=== PATIENT | female | born 1940 | race Caucasian/White ===

== ENCOUNTER → 2017-04-29 | Outpatient (CLI) | payer OTHER ==
[~2017-04-29] MED LIST: ACETASOL; ASCO1ER PO; ASPI81EC PO; AVISTA; Aspir 8181 MG PO; BETA CAROTENE PO; CALCIUM CITRAT1 EAC1 PO; CHOL10002 PO; CONESTTC PV; CONESTTC VAG; Cinnamon500 MG; Cranberry300 MG PO; ERGO400 PO; FISH1000 PO; FLAX PO; FLAXSEED1000 MG PO; HYDMOR4 PO; LEVSOD125 PO; LEVSOD50 PO; LUTEIN; MEDR2.5 PO; NAPR500 PO; NITR.4SL SL; NITR.6SL SL; RABE20; RABE20 PO; RXHYDMOR2 PO; SIMILASAN; Super B-50 Com1 EACH PO; TERI750 SQ; TURMERIC500 M2 PO; VIT1CAPS12; [UNRECOGNIZED DRUG - CODE]; [UNRECOGNIZED DRUG - OTHER]; [UNRECOGNIZED DRUG - REMARK]
== END | disposition home or self-care (01) ==
LOC: LAB 14:33
DX: N39.0 Urinary tract infection, site not specified (principal)
CPT/HCPCS: 87086

== ENCOUNTER → 2017-05-04 | Outpatient (CLI) | payer OTHER | LOC: LAB 13:45 | DX: N39.0 Urinary tract infection, site not specified (principal) | CPT/HCPCS: 87086 ==

== ENCOUNTER 2017-06-08 09:09 | Emergency (ER) | payer OTHER ==
[~2017-06-08] VITALS: Ht 162.6 cm; Wt 53.0 kg
[~2017-06-08 09:09] MED LIST changes: -FLAXSEED1000 MG PO; -TURMERIC500 M2 PO
[2017-06-08 09:36] LABS: BASOPHILS ABSOLUTE AUTO 0.03 K/mm3 (0.00-0.23); BASOPHILS PERCENT AUTO 1 % (0-2); EOSINOPHILS ABSOLUTE AUTO 0.07 K/mm3 (0.00-0.68); EOSINOPHILS PERCENT AUTO 1 % (0-6); Hemoglobin 12.7 g/dL (11.5-16.0); IMMATURE GRAN ABSOLUTE AUTO 0.02 K/mm3 (0.00-0.10); IMMATURE GRAN PERCENT AUTO 0 % (0-1); LYMPHOCYTES ABSOLUTE AUTO 1.46 K/mm3 (0.84-5.20); LYMPHOCYTES PERCENT AUTO 23 % (21-46); MONOCYTES ABSOLUTE AUTO 0.77 K/mm3 (0.16-1.47); MONOCYTES PERCENT AUTO 12 % (4-13); Mean Corpuscular HGB 29.8 pg (26.0-34.0); Mean Corpuscular HGB Conc 32.6 g/dL (31.5-36.5); Mean Corpuscular Volume 92 fL (80-100); Mean Platelet Volume 10.3 fL (9.1-12.4); NEUTROPHILS ABSOLUTE AUTO 4.12 K/mm3 (1.96-9.15); NEUTROPHILS PERCENT AUTO 64 % (41-73); Platelet Count 225 K/mm3 (150-400); RDW Coefficient Variation 13.6 % (11.7-14.2); RDW Standard Deviation 46.1 fL (35.1-46.3); Red Blood Cell Count 4.26 M/mm3 (3.80-5.20); White Blood Cell Count 6.47 K/mm3 (4.00-11.30)
[2017-06-08] MEDS ORDERED: TURMERIC500 M2 PO (09:59)
[2017-06-08] MEDS ORDERED: FLAXSEED1000 MG PO (10:00)
[2017-06-08 10:02] LABS: Alanine Aminotransfer (ALT/SGP 33 U/L (12-78); Albumin, Blood 3.5 g/dL (3.4-5.0); Alk Phos 45 U/L (50-136); Anion Gap 8 mmol/L (6-16); Aspartate Aminotrans (AST/SGOT 31 U/L (12-37); Bilirubin, Total 0.3 mg/dL (0.1-1.0); Blood Urea Nitrogen 23 mg/dL (8-24); Bun/Creatinine Ratio 32.3 (12.0-20.0); CO2, Blood 26 mmol/L (21-32); Calcium, Blood 8.6 mg/dL (8.5-10.1); Chloride, Blood 107 mmol/L (98-108); Creatinine, Blood 0.71 mg/dL (0.40-1.00); Globulin, Blood 3.6 g/dL (2.2-4.0); Glomerular Filtration Rate >60 (60-); Glucose, Blood 80 mg/dL (70-99); Potassium, Blood 3.9 mmol/L (3.5-5.5); Sodium, Blood 141 mmol/L (136-145); Total Protein, Blood 7.1 g/dL (6.4-8.2); Troponin I <0.015 ng/mL (0.000-0.040)
[2017-06-08 11:34] LABS: Source, Urine Clean Catch
[2017-06-08 11:39] LABS: Bilirubin, Urine Neg (Neg); Blood, Urine Neg (Neg); Glucose Qualitative, Urine Neg (Neg); Ketones, Urine Neg (Neg); Leukocyte Esterase, Urine 1+ (Neg); Nitrite, Urine Neg (Neg); Protein, Urine Neg (Neg); Urobilinogen, Urine NORM (Normal)
[2017-06-08 11:59] LABS: Appearance, Urine Clear (Clear); Color, Urine Yellow (P-Yellow); Red Blood Cells, Urine 0-2 /hpf (0-2); Squamous Epithelial Cells Few /hpf (Few)
[2017-06-08 12:00] LABS: Bacteria Rare /hpf
== END 2017-06-08 12:41 | disposition home or self-care (01) ==
LOC: ER 09:09
PROVIDERS: Emergency Medicine
DX: R07.9 Chest pain, unspecified (principal); E11.9 Type 2 diabetes mellitus without complications; E03.9 Hypothyroidism, unspecified; K21.9 Gastro-esophageal reflux disease without esophagitis; Z88.0 Allergy status to penicillin; Z88.8 Allergy status to other drugs, medicaments and biological substances; Z88.1 Allergy status to other antibiotic agents; Z79.899 Other long term (current) drug therapy; Z79.82 Long term (current) use of aspirin; Z87.891 Personal history of nicotine dependence
CPT/HCPCS: 36415; 71046; 80053; 81001; 83880; 84484; 85025; 87086; 93005; 93010; 99284; J2405

== ENCOUNTER → 2018-04-07 | Outpatient (CLI) | payer OTHER ==
[~2018-04-07] MED LIST changes: +FLAXSEED1000 MG PO; +TURMERIC500 M2 PO
== END | disposition home or self-care (01) ==
LOC: LAB 11:34 → LAB SHORT 11:34
DX: R30.0 Dysuria (principal)
CPT/HCPCS: 87086

== ENCOUNTER → 2018-09-16 | Outpatient (CLI) | payer OTHER ==
[2018-09-16 14:02] LABS: Thyroid Stimulating Hormone 2.92 uIU/mL (0.360-4.800)
== END | disposition home or self-care (01) ==
LOC: LAB 13:21 → LAB SHORT 13:21
PROVIDERS: Hospitalist
DX: E03.9 Hypothyroidism, unspecified (principal)
CPT/HCPCS: 84439; 84443

== ENCOUNTER 2019-06-20 07:47 | Day surgery (SDC) | payer OTHER ==
[~2019-06-20] VITALS: Ht 162.6 cm; Wt 51.9 kg
[~2019-06-20 07:47] MED LIST changes: +ACETASOL HC BOTHEARS; +CONEST.625 VAG; +DICL25ER TOP; +PROLIA60 MG/1 ML SC
--- NOTE | 2019-06-20 09:36 | NUR ---
06/20/19 0936 Kristin Beckham CLINDAMYCIN 900 MG STARTED AT 0906.
== END 2019-06-20 11:08 | disposition home or self-care (01) ==
LOC: ORSCSDS 07:47
PROVIDERS: Orthopaedic Surgery
PROC: 0SBD4ZZ Excision of Left Knee Joint, Percutaneous Endoscopic Approach (ICD-10-PCS; principal; 2019-06-20 09:00)
DX: S83.242A Other tear of medial meniscus, current injury, left knee, initial encounter (principal); S83.282A Other tear of lateral meniscus, current injury, left knee, initial encounter; I10 Essential (primary) hypertension; E11.9 Type 2 diabetes mellitus without complications; E03.9 Hypothyroidism, unspecified; Z79.899 Other long term (current) drug therapy; Z87.891 Personal history of nicotine dependence; J45.909 Unspecified asthma, uncomplicated
CPT/HCPCS: 82947; J0171; J1100; J1885; J2250; J2405; J2704; J3010; J3370; J7120

== ENCOUNTER → 2019-06-30 | Outpatient (CLI) | payer OTHER ==
[2019-06-30 20:12] LABS: Free Thyroxine 1.2 ng/dL (0.70-1.60)
[2019-06-30 20:15] LABS: Thyroid Stimulating Hormone 2.31 uIU/mL (0.360-4.800)
== END ==
LOC: LAB 17:48 → LAB SHORT 17:48
PROVIDERS: Hospitalist
DX: E03.9 Hypothyroidism, unspecified (principal)
CPT/HCPCS: 84439; 84443

== ENCOUNTER → 2020-11-08 | Outpatient (CLI) | payer OTHER ==
[~2020-11-08] MED LIST changes: +FISH OIL PO; +GLUCHON PO; +VITAMIN B50 PO
[2020-11-08 15:29] LABS: BASOPHILS ABSOLUTE AUTO 0.03 K/mm3 (0.00-0.23); BASOPHILS PERCENT AUTO 0 % (0-2); EOSINOPHILS ABSOLUTE AUTO 0.07 K/mm3 (0.00-0.68); EOSINOPHILS PERCENT AUTO 1 % (0-6); Hematocrit 38.9 % (33.0-51.0); Hemoglobin 12.7 g/dL (11.5-16.0); IMMATURE GRAN ABSOLUTE AUTO 0.01 K/mm3 (0.00-0.10); IMMATURE GRAN PERCENT AUTO 0 % (0-1); LYMPHOCYTES PERCENT AUTO 15 % (21-46); MONOCYTES ABSOLUTE AUTO 0.62 K/mm3 (0.16-1.47); MONOCYTES PERCENT AUTO 9 % (4-13); Mean Corpuscular HGB 29.5 pg (26.0-34.0); Mean Corpuscular HGB Conc 32.6 g/dL (31.5-36.5); Mean Corpuscular Volume 91 fL (80-100); Mean Platelet Volume 10.7 fL (9.1-12.4); NEUTROPHILS ABSOLUTE AUTO 5.33 K/mm3 (1.96-9.15); NEUTROPHILS PERCENT AUTO 74 % (41-73); Platelet Count 265 K/mm3 (150-400); RDW Coefficient Variation 13.2 % (11.7-14.2); RDW Standard Deviation 43.8 fL (35.1-46.3); White Blood Cell Count 7.16 K/mm3 (4.00-11.30)
== END | disposition home or self-care (01) ==
LOC: LAB SHORT 13:50
PROVIDERS: Hospitalist
DX: K21.9 Gastro-esophageal reflux disease without esophagitis (principal); K92.1 Melena
CPT/HCPCS: 85025

== ENCOUNTER 2021-03-20 10:55 | Day surgery (SDC) | payer OTHER ==
[~2021-03-20] VITALS: Ht 162.6 cm; Wt 49.4 kg
--- NOTE | 2021-03-20 12:35 | NUR ---
Ambulatory in Day Surgery History, Chart, Medications and Allergies reviewed before start of procedure.Lungs clear T/O to Auscultation. Patient confirms NPO status and agrees with scheduled surgery. ALL BEONINGS PLACED UNDER THE BED.
--- NOTE | 2021-03-20 17:36 | NUR ---
PT ARRIVED TO UNIT FROM PACU. POLAR MARLENA IN PLACE DRESSING CDI. PT REPORTS MINIMAL FEELING TO LOWER EXTREMETIES, AND HAS MINIMAL MOVEMENT OF TOES. DENIES PAIN OR NAUSEA. REPORTS FEELING VERY TIRED AFTER SURGERY AND REQUESTED THIS RN HOLD OFF ASKING ADMIT QUESTIONS AT THIS TIME. AT BEDSIDE. CALL LIGHT IN REACH. PT EDUCATED ON USE.
--- NOTE | 2021-03-21 04:47 | NUR ---
SHIFT SUMMARY PT A/OX4, VSS. SURGICAL DRESSING TO L KNEE C/D/I. S/L PER ORDER. PAIN CONTROLLED WITH SCHEDULED/PRN MEDICATIONS. PT UP TO THE BATHROOM AND VOIDING WITH NO ISSUES WHILE USING A WALKER.
[2021-03-21 05:31] LABS: BASOPHILS ABSOLUTE AUTO 0.02 K/mm3 (0.00-0.23); BASOPHILS PERCENT AUTO 0 % (0-2); EOSINOPHILS PERCENT AUTO 0 % (0-6); Hematocrit 32.7 % (33.0-51.0); Hemoglobin 10.7 g/dL (11.5-16.0); IMMATURE GRAN ABSOLUTE AUTO 0.07 K/mm3 (0.00-0.10); IMMATURE GRAN PERCENT AUTO 1 % (0-1); LYMPHOCYTES ABSOLUTE AUTO 0.77 K/mm3 (0.84-5.20); LYMPHOCYTES PERCENT AUTO 5 % (21-46); MONOCYTES PERCENT AUTO 10 % (4-13); Mean Corpuscular HGB 29.4 pg (26.0-34.0); Mean Corpuscular HGB Conc 32.7 g/dL (31.5-36.5); Mean Corpuscular Volume 90 fL (80-100); Mean Platelet Volume 10.8 fL (9.1-12.4); NEUTROPHILS ABSOLUTE AUTO 12.44 K/mm3 (1.96-9.15); NEUTROPHILS PERCENT AUTO 85 % (41-73); Platelet Count 214 K/mm3 (150-400); RDW Coefficient Variation 13.2 % (11.7-14.2); RDW Standard Deviation 43.5 fL (35.1-46.3); Red Blood Cell Count 3.64 M/mm3 (3.80-5.20)
[2021-03-21 05:57] LABS: Anion Gap 8 mmol/L (6-16); Blood Urea Nitrogen 22 mg/dL (8-24); Bun/Creatinine Ratio 27.5 (12.0-20.0); CO2, Blood 27 mmol/L (21-32); Calcium, Blood 8.4 mg/dL (8.5-10.1); Chloride, Blood 106 mmol/L (98-108); Glomerular Filtration Rate >60 (60-); Glucose, Blood 128 mg/dL (70-99); Magnesium, Blood 1.9 mg/dL (1.6-2.4); Potassium, Blood 4.2 mmol/L (3.5-5.5); Sodium, Blood 141 mmol/L (136-145)
[2021-03-21] MEDS ORDERED: ASPI81CH PO (10:37)
[2021-03-21] MEDS ORDERED: ROXICODONE5 MG PO (10:38)
[2021-03-21] MEDS ORDERED: PROM25 PO (10:39)
[2021-03-21] MEDS ORDERED: BACTRIM DS TAB1 EAC6 (10:40)
[2021-03-21] MEDS ORDERED: SULTRIDS PO (10:41)
--- NOTE | 2021-03-21 11:23 | NUR ---
1102 discharged to home with . pt reports pain is well controlled . pt and spouse verbalize understanding of discharge instructions.t masoud po food without nausea. voiding clear yellow urine.
--- NOTE | 2021-03-21 11:52 | NUR ---
03/21/21 1152 Lydia Griggs VERIFICATIONS: EDIT CHART.
== END 2021-03-21 11:05 | disposition home or self-care (01) ==
LOC: ORSCMMR 10:55 → ORD 14:00 → SURS 16:56 → ORSCMMR 03-21 11:05
PROVIDERS: Orthopaedic Surgery
PROC: 0SRD0J9 Replacement of Left Knee Joint with Synthetic Substitute, Cemented, Open Approach (ICD-10-PCS; principal; 2021-03-20 14:00)
PROC: 8E0YXBZ Computer Assisted Procedure of Lower Extremity (ICD-10-PCS; principal; 2021-03-20 14:00)
DX: M17.12 Unilateral primary osteoarthritis, left knee (principal); E11.9 Type 2 diabetes mellitus without complications; E03.9 Hypothyroidism, unspecified; Z79.899 Other long term (current) drug therapy; Z79.82 Long term (current) use of aspirin
CPT/HCPCS: 36415; 73560-LT; 80048; 82947; 83735; 85025; 97110; 97116; 97161; 97530; A9270; C1713; C1776; J0171; J0735; J1815; J1885; J2795; J3370; J7030; J7120

== ENCOUNTER → 2021-07-17 | Outpatient (CLI) | payer OTHER ==
[~2021-07-17] MED LIST changes: +ASPI81CH PO; +BACTRIM DS TAB1 EAC6; +PROM25 PO; +ROXICODONE5 MG PO; +SULTRIDS PO
[2021-07-17 16:13] LABS: Alanine Aminotransfer (ALT/SGP 29 U/L (12-78); Albumin, Blood 3.6 g/dL (3.4-5.0); Alk Phos 70 U/L (50-136); Anion Gap 9 mmol/L (6-16); Aspartate Aminotrans (AST/SGOT 21 U/L (12-37); Bilirubin, Total 0.4 mg/dL (0.1-1.0); Blood Urea Nitrogen 21 mg/dL (8-24); Bun/Creatinine Ratio 30.4 (12.0-20.0); CO2, Blood 26 mmol/L (21-32); Calcium, Blood 9.6 mg/dL (8.5-10.1); Chloride, Blood 106 mmol/L (98-108); Creatinine, Blood 0.69 mg/dL (0.40-1.00); Free Thyroxine 0.94 ng/dL (0.70-1.60); Globulin, Blood 3.5 g/dL (2.2-4.0); Glomerular Filtration Rate >60 (60-); Glucose, Blood 112 mg/dL (70-99); Potassium, Blood 4.6 mmol/L (3.5-5.5); Sodium, Blood 141 mmol/L (136-145); Total Protein, Blood 7.1 g/dL (6.4-8.2); Triiodothyronine, Free 2.28 pg/mL (2.18-3.98)
== END ==
LOC: LAB SHORT 14:11
PROVIDERS: Hospitalist
DX: E11.42 Type 2 diabetes mellitus with diabetic polyneuropathy (principal); E03.9 Hypothyroidism, unspecified; R14.0 Abdominal distension (gaseous)
CPT/HCPCS: 80053; 83036; 84439; 84443; 84481

== ENCOUNTER → 2021-08-20 | Outpatient (CLI) | payer OTHER | END | disposition home or self-care (01) | LOC: LAB SHORT 16:45 | DX: R10.9 Unspecified abdominal pain (principal) | CPT/HCPCS: 87086 ==

== ENCOUNTER → 2022-11-27 | Outpatient (CLI) | payer OTHER ==
[2022-11-27 16:04] LABS: Bun/Creatinine Ratio 38.2 (12.0-20.0); Calcium, Blood 8.7 mg/dL (8.5-10.1); Creatinine, Blood 0.71 mg/dL (0.40-1.00); Potassium, Blood 3.8 mmol/L (3.5-5.5)
[2022-11-27 17:17] LABS: Creatinine, Urine Random 62.6 mg/dL (27.00-270.00); Microalb/Creat Ratio UR, Rand 11.246 mg/g (0.000-30.000); Microalbumin, Random Urine 7.04 mg/L (0.000-20.000)
== END ==
LOC: LAB 08:53 → LAB SHORT 08:53
PROVIDERS: Hospitalist
DX: E11.69 Type 2 diabetes mellitus with other specified complication (principal)
CPT/HCPCS: 80048; 82043; 82570

== ENCOUNTER → 2022-12-18 | Outpatient (CLI) | payer OTHER ==
[2022-12-18 17:21] LABS: Source, Urine Clean Catch
[2022-12-18 17:27] LABS: Appearance, Urine Hazy (Clear); Bilirubin, Urine Neg (Neg); Blood, Urine Neg (Neg); Color, Urine Yellow (P-Yellow); Glucose Qualitative, Urine Neg (Neg); Ketones, Urine Neg (Neg); Leukocyte Esterase, Urine Neg (Neg); Nitrite, Urine Neg (Neg); Protein, Urine Neg (Neg); Specific Gravity, Urine 1.015 (1.003-1.022); Urobilinogen, Urine NORM (Normal)
[2022-12-18 17:37] LABS: Bacteria Many /hpf; Red Blood Cells, Urine 0-2 /hpf (0-2); Squamous Epithelial Cells Few /hpf (Few); White Blood Cells, Urine 0-2 /hpf (0-5)
== END ==
LOC: LAB SHORT 16:39 → LAB 16:39
PROVIDERS: Obstetrics & Gynecology
DX: R32 Unspecified urinary incontinence (principal)
CPT/HCPCS: 81001; 87086

== ENCOUNTER → 2023-02-01 | Outpatient (CLI) | payer OTHER | LOC: LAB 10:26 → LAB SHORT 10:26 | DX: N39.0 Urinary tract infection, site not specified (principal) | CPT/HCPCS: 87077; 87086; 87186 ==

== ENCOUNTER → 2023-11-09 | Outpatient (CLI) | payer OTHER | END | disposition home or self-care (01) | LOC: LAB 09:40 → LAB SHORT 09:40 | DX: N30.01 Acute cystitis with hematuria (principal) | CPT/HCPCS: 87086 ==

== ENCOUNTER 2024-02-01 00:36 | Emergency (ER) | payer OTHER ==
[~2024-02-01] VITALS: Ht 162.6 cm; Wt 50.8 kg
[2024-02-01 01:45] LABS: BASOPHILS ABSOLUTE AUTO 0.04 K/mm3 (0.00-0.23); BASOPHILS PERCENT AUTO 1 % (0-2); EOSINOPHILS PERCENT AUTO 3 % (0-6); Hematocrit 36.6 % (33.0-51.0); IMMATURE GRAN ABSOLUTE AUTO 0.03 K/mm3 (0.00-0.10); IMMATURE GRAN PERCENT AUTO 0 % (0-1); LYMPHOCYTES ABSOLUTE AUTO 1.41 K/mm3 (0.84-5.20); LYMPHOCYTES PERCENT AUTO 20 % (21-46); MONOCYTES ABSOLUTE AUTO 0.62 K/mm3 (0.16-1.47); MONOCYTES PERCENT AUTO 9 % (4-13); Mean Corpuscular HGB 29.6 pg (26.0-34.0); Mean Corpuscular HGB Conc 32.8 g/dL (31.5-36.5); Mean Corpuscular Volume 90 fL (80-100); Mean Platelet Volume 10.1 fL (9.1-12.4); NEUTROPHILS ABSOLUTE AUTO 4.67 K/mm3 (1.96-9.15); NEUTROPHILS PERCENT AUTO 67 % (41-73); Platelet Count 219 K/mm3 (150-400); RDW Coefficient Variation 13.4 % (11.7-14.2); RDW Standard Deviation 44.3 fL (35.1-46.3); Red Blood Cell Count 4.05 M/mm3 (3.80-5.20); White Blood Cell Count 6.97 K/mm3 (4.00-11.30)
[2024-02-01] MEDS ORDERED: GEMTESA75 MG PO (01:51)
[2024-02-01] MEDS ORDERED: FAMO10 PO (01:53)
[2024-02-01 02:16] LABS: Albumin, Blood 3.4 g/dL (3.4-5.0); Bilirubin, Total 0.3 mg/dL (0.1-1.0); Bun/Creatinine Ratio 30.5 (12.0-20.0); Creatinine, Blood 0.79 mg/dL (0.40-1.00); Globulin, Blood 3.3 g/dL (2.2-4.0); Potassium, Blood 4.1 mmol/L (3.5-5.5); Total Protein, Blood 6.7 g/dL (6.4-8.2)
[2024-02-01 04:30] VITALS: BP 164/70
== END 2024-02-01 04:52 | disposition home or self-care (01) ==
LOC: ER 00:36
PROVIDERS: Student in an Organized Health Care Education/Training Program
DX: R07.89 Other chest pain (principal); Z88.0 Allergy status to penicillin; Z79.899 Other long term (current) drug therapy; Z79.82 Long term (current) use of aspirin; E11.9 Type 2 diabetes mellitus without complications; E03.9 Hypothyroidism, unspecified; K21.9 Gastro-esophageal reflux disease without esophagitis; Z87.891 Personal history of nicotine dependence
CPT/HCPCS: 71045; 80053; 84484; 85025; 93005; 93010; 99285-25

== ENCOUNTER → 2024-05-19 | Outpatient (CLI) | payer OTHER ==
[~2024-05-19] MED LIST changes: +FAMO10 PO; +GEMTESA75 MG PO
[2024-05-19 10:29] LABS: Microalb/Creat Ratio UR, Rand Unable to Calculate mg/g (0.000-30.000); Microalbumin, Random Urine <5.000 mg/L (0.000-20.000)
== END | disposition home or self-care (01) ==
LOC: LAB SHORT 08:04
PROVIDERS: Hospitalist
DX: E11.69 Type 2 diabetes mellitus with other specified complication (principal)
CPT/HCPCS: 82043; 82570

== ENCOUNTER 2025-02-02 11:13 | Emergency (ER) | payer OTHER ==
[~2025-02-02] VITALS: Ht 162.6 cm; Wt 51.3 kg
[2025-02-02 12:03] LABS: BASOPHILS ABSOLUTE AUTO 0.04 K/mm3 (0.00-0.23); BASOPHILS PERCENT AUTO 1 % (0-2); EOSINOPHILS ABSOLUTE AUTO 0.06 K/mm3 (0.00-0.68); EOSINOPHILS PERCENT AUTO 1 % (0-6); Hematocrit 39.8 % (33.0-51.0); Hemoglobin 12.9 g/dL (11.5-16.0); IMMATURE GRAN ABSOLUTE AUTO 0.03 K/mm3 (0.00-0.10); IMMATURE GRAN PERCENT AUTO 0 % (0-1); LYMPHOCYTES ABSOLUTE AUTO 1.34 K/mm3 (0.84-5.20); LYMPHOCYTES PERCENT AUTO 17 % (21-46); MONOCYTES ABSOLUTE AUTO 0.77 K/mm3 (0.16-1.47); MONOCYTES PERCENT AUTO 10 % (4-13); Mean Corpuscular HGB Conc 32.4 g/dL (31.5-36.5); Mean Corpuscular Volume 90 fL (80-100); NEUTROPHILS ABSOLUTE AUTO 5.68 K/mm3 (1.96-9.15); NEUTROPHILS PERCENT AUTO 72 % (41-73); NRBC ABSOLUTE 0.00 K/mm3 (0.00-0.02); NRBC Auto 0.0 /100 WBC (0.0-0.2); Platelet Count 245 K/mm3 (150-400); RDW Coefficient Variation 13.6 % (11.7-14.2); RDW Standard Deviation 44.8 fL (35.1-46.3)
[2025-02-02 12:26] LABS: Alanine Aminotransfer (ALT/SGP 34.0 U/L (12-78); Albumin, Blood 3.8 g/dL (3.4-5.0); Albumin/Globulin Ratio 1.1 (0.8-1.8); Anion Gap 6.0 mmol/L (3-11); Aspartate Aminotrans (AST/SGOT 33.0 U/L (12-37); Bilirubin, Total 0.3 mg/dL (0.1-1.0); Blood Urea Nitrogen 22.0 mg/dL (8-24); CO2, Blood 27.0 mmol/L (21-32); Calcium, Blood 9.8 mg/dL (8.5-10.1); Chloride, Blood 108.0 mmol/L (98-108); Creatinine, Blood 0.67 mg/dL (0.40-1.00); Globulin, Blood 3.5 g/dL (2.2-4.0); Glucose, Blood 103.0 mg/dL (70-99); Potassium, Blood 3.9 mmol/L (3.5-5.5); Sodium, Blood 137.0 mmol/L (136-145); Total Protein, Blood 7.3 g/dL (6.4-8.2)
[2025-02-02 16:05] VITALS: BP 179/85
== END 2025-02-02 16:23 | disposition home or self-care (01) ==
LOC: ER 11:13
PROVIDERS: Student in an Organized Health Care Education/Training Program
DX: R07.9 Chest pain, unspecified (principal); I10 Essential (primary) hypertension; E11.9 Type 2 diabetes mellitus without complications; E03.9 Hypothyroidism, unspecified; K21.9 Gastro-esophageal reflux disease without esophagitis; Z87.891 Personal history of nicotine dependence; Z79.82 Long term (current) use of aspirin; Z79.899 Other long term (current) drug therapy; Z88.0 Allergy status to penicillin
CPT/HCPCS: 71046; 80053; 84484; 85025; 99285-25

== ENCOUNTER 2025-02-08 00:28 | Observation (INO) | payer OTHER ==
[~2025-02-08] VITALS: Ht 162.6 cm; Wt 52.2 kg
[2025-02-08 00:46] LABS: BASOPHILS ABSOLUTE AUTO 0.03 K/mm3 (0.00-0.23); BASOPHILS PERCENT AUTO 0 % (0-2); EOSINOPHILS ABSOLUTE AUTO 0.19 K/mm3 (0.00-0.68); EOSINOPHILS PERCENT AUTO 3 % (0-6); Hematocrit 36.1 % (33.0-51.0); Hemoglobin 12.1 g/dL (11.5-16.0); IMMATURE GRAN ABSOLUTE AUTO 0.01 K/mm3 (0.00-0.10); IMMATURE GRAN PERCENT AUTO 0 % (0-1); LYMPHOCYTES ABSOLUTE AUTO 1.89 K/mm3 (0.84-5.20); LYMPHOCYTES PERCENT AUTO 28 % (21-46); MONOCYTES ABSOLUTE AUTO 0.83 K/mm3 (0.16-1.47); MONOCYTES PERCENT AUTO 12 % (4-13); Mean Corpuscular HGB Conc 33.5 g/dL (31.5-36.5); Mean Corpuscular Volume 88 fL (80-100); NEUTROPHILS ABSOLUTE AUTO 3.78 K/mm3 (1.96-9.15); NEUTROPHILS PERCENT AUTO 56 % (41-73); NRBC ABSOLUTE 0.00 K/mm3 (0.00-0.02); NRBC Auto 0.0 /100 WBC (0.0-0.2); Platelet Count 239 K/mm3 (150-400); RDW Coefficient Variation 13.6 % (11.7-14.2); RDW Standard Deviation 44.1 fL (35.1-46.3)
[2025-02-08 01:03] LABS: Alanine Aminotransfer (ALT/SGP 32.0 U/L (12-78); Albumin, Blood 3.6 g/dL (3.4-5.0); Albumin/Globulin Ratio 1.1 (0.8-1.8); Anion Gap 9.0 mmol/L (3-11); Aspartate Aminotrans (AST/SGOT 31.0 U/L (12-37); Bilirubin, Total 0.4 mg/dL (0.1-1.0); Blood Urea Nitrogen 26.0 mg/dL (8-24); CO2, Blood 27.0 mmol/L (21-32); Calcium, Blood 9.6 mg/dL (8.5-10.1); Chloride, Blood 108.0 mmol/L (98-108); Creatinine, Blood 0.76 mg/dL (0.40-1.00); Globulin, Blood 3.3 g/dL (2.2-4.0); Glucose, Blood 109.0 mg/dL (70-99); Potassium, Blood 3.9 mmol/L (3.5-5.5); Sodium, Blood 140.0 mmol/L (136-145); Total Protein, Blood 6.9 g/dL (6.4-8.2)
[2025-02-08 04:35] LABS: Anti-Xa UFH, PHA Monitoring <0.10 IU/mL; Prothrombin Time Results 11.4 Sec (9.7-11.5)
[2025-02-08 04:44] LABS: D-Dimer, Quantitative 0.37 mg/L FEU (0.00-0.52)
[2025-02-08] MEDS ORDERED: FLU VACC TS2025(65UP)/MF59C/PF 45 MCG/0.5 ML SYRINGE IM SCH (04:55)
[2025-02-08] MEDS ORDERED: HydrALAZINE HCl 20 MG / ML 1ML Vial IV PRN (04:55)
[2025-02-08] MEDS ORDERED: Dose Adjust by Pharmacy XX STA ×3 (05:12→20:43)
[2025-02-08] MEDS ORDERED: Heparin Sodium,Porcine/0.5 NS 500 ML IV SCH (05:15)
[2025-02-08] MEDS ORDERED: Heparin Sodium 5000 Units/ML 1ML MDV IV ONE (05:15)
[2025-02-08 05:18] VITALS: BP 177/72
[2025-02-08] MEDS ORDERED: EUTHYROX125 MCG PO (05:26)
[2025-02-08] MEDS ORDERED: MEDR2.5 PO (05:29)
[2025-02-08] MEDS ORDERED: [UNRECOGNIZED DRUG - OTHER] PO (05:30)
[2025-02-08] MEDS ORDERED: GEMTESA75 MG PO (05:31)
[2025-02-08] MEDS ORDERED: FAMO10 PO (05:31)
[2025-02-08] MEDS ORDERED: FISH OIL 1,0001 EA10 PO (05:32)
[2025-02-08] MEDS ORDERED: CALCIUM CIT 311 EAC7 PO (05:32)
[2025-02-08] MEDS ORDERED: PREMARIN VAG (05:38)
[2025-02-08 07:02] LABS: BASOPHILS ABSOLUTE AUTO 0.05 K/mm3 (0.00-0.23); BASOPHILS PERCENT AUTO 1 % (0-2); EOSINOPHILS ABSOLUTE AUTO 0.09 K/mm3 (0.00-0.68); EOSINOPHILS PERCENT AUTO 1 % (0-6); Hematocrit 37.0 % (33.0-51.0); Hemoglobin 12.3 g/dL (11.5-16.0); IMMATURE GRAN ABSOLUTE AUTO 0.03 K/mm3 (0.00-0.10); IMMATURE GRAN PERCENT AUTO 0 % (0-1); LYMPHOCYTES ABSOLUTE AUTO 1.62 K/mm3 (0.84-5.20); LYMPHOCYTES PERCENT AUTO 17 % (21-46); MONOCYTES ABSOLUTE AUTO 1.00 K/mm3 (0.16-1.47); MONOCYTES PERCENT AUTO 10 % (4-13); Mean Corpuscular HGB Conc 33.2 g/dL (31.5-36.5); Mean Corpuscular Volume 88 fL (80-100); NEUTROPHILS ABSOLUTE AUTO 6.78 K/mm3 (1.96-9.15); NEUTROPHILS PERCENT AUTO 71 % (41-73); NRBC ABSOLUTE 0.00 K/mm3 (0.00-0.02); NRBC Auto 0.0 /100 WBC (0.0-0.2); Platelet Count 234 K/mm3 (150-400); RDW Coefficient Variation 13.6 % (11.7-14.2); RDW Standard Deviation 43.8 fL (35.1-46.3)
[2025-02-08 07:28] LABS: Alanine Aminotransfer (ALT/SGP 28.0 U/L (12-78); Albumin, Blood 3.5 g/dL (3.4-5.0); Albumin/Globulin Ratio 1.1 (0.8-1.8); Anion Gap 8.0 mmol/L (3-11); Aspartate Aminotrans (AST/SGOT 27.0 U/L (12-37); Bilirubin, Total 0.4 mg/dL (0.1-1.0); Blood Urea Nitrogen 22.0 mg/dL (8-24); CO2, Blood 28.0 mmol/L (21-32); Calcium, Blood 8.8 mg/dL (8.5-10.1); Chloride, Blood 107.0 mmol/L (98-108); Creatinine, Blood 0.67 mg/dL (0.40-1.00); Globulin, Blood 3.2 g/dL (2.2-4.0); Glucose, Blood 109.0 mg/dL (70-99); Potassium, Blood 3.6 mmol/L (3.5-5.5); Sodium, Blood 139.0 mmol/L (136-145); Thyroid Stimulating Hormone 3.7 uIU/mL (0.360-4.800); Total Protein, Blood 6.7 g/dL (6.4-8.2)
--- NOTE | 2025-02-08 07:32 | NUR ---
ASSUMPTION NOTE: THIS RN TO ASSUME CARE OF PATIENT. PATIENT IS SITTING UP IN BED AND [facility]ATT[facility].VITAL SIGNS STABLE. PATIENT DENIED ANY CURRENT CHEST PAIN. AWARE AND WAITING FOR DECATING MACHINE OPERATOR TO COME BY,PATIENT IS NPO PENDING CONSULT. PATIENT HAS CALL LIGHT WITHIN REACH, BED IN LOWEST LOCKED POSITION & STATING NOTHING ELSE IS NEEEDED AT THIS TIME.
[2025-02-08 07:33] VITALS: BP 165/75
--- NOTE | 2025-02-08 08:48 | NUR ---
CARDIOLOGY ROUNDED: EDGAR ROUNDED AND SPOKE WITH PAITNET AND FAMILY AT BEDSIDE. PLAN WILL BE TO MEDICALLY MANAGE AND GET IMAGING DONE AND HOLD OFF ON A CATH PROCEDURE AT THIS TIME. PATIENT TO BE STARTED ON MEDICATIONS AND IS OKAY TO EAT. MD TO PLACE ORDERS.
--- NOTE | 2025-02-08 10:43 | NUR ---
CALLED: THIS RN CALLED MD REGARDIGN CRITICAL TROPONIN THAT WAS RECEIVED. NO NEW ORDERS AT THIS TIME. ANOTHER TROPONIN TO BE DRAWN AT 1200
[2025-02-08 12:34] VITALS: BP 132/73
--- NOTE | 2025-02-08 14:07 | NUR ---
CONTACTED; THIS RN CALLED MD REGARDING PATIENTS CRITICAL TROPONIN BACK. MD GAVE VERBAL ORDER TO GET ON MORE TROPONIN LAB TO BE DRAWN AT 1700.
[2025-02-08 15:45] VITALS: BP 107/61
--- NOTE | 2025-02-08 17:08 | NUR ---
SHIFT SUMMARY: PATIENT IS ALERT AND ORIETNED X4 & COOPERATIVE WITH HER CARE. ON TELE SHOWING SINUS RYTHM 70'S. ON HEPARIN DRIP AT 13U/KG. PATIENT SATTING >92% ON ROOM AIR. CARDIOLOGY PLAN IS TO MED MANAGE AND PATIENT WAS STARTED ON NEW MEDICATIONS TODAY, SEE EMAR FOR MORE INFORMATION. PATIENT WALKED AROUND UNIT WITH THIS RN AND TOLERATED IT WELL WITHOUT ANY COMPLAINS. WAS ABLE TO GET SOME REST THROUGHOUT THE SHIFT. PATIENT IS A STAND BY ASSIST TO MANAGE LINES/CHORDS. PATIENT CURRENTLY VISITING WITH FAMILY AT BEDSIDE. CALL LIGHT WITHIN REAACH, BED IN LOWEST LOCKED POSITION & STATING NOTHING ELSE IS NEEDED AT THIS TIME.
[2025-02-08 19:31] VITALS: BP 108/63
[2025-02-09 00:17] VITALS: BP 118/68
[2025-02-09 03:17] VITALS: BP 115/58
[2025-02-09 03:35] LABS: Hematocrit 34.8 % (33.0-51.0); Hemoglobin 11.5 g/dL (11.5-16.0); Platelet Count 228 K/mm3 (150-400)
[2025-02-09] MEDS ORDERED: Clarify Drug Order XX ONE (04:00)
--- NOTE | 2025-02-09 05:43 | NUR ---
SHIFT SUMMARY PATIENT A/OX4. NO SIGNIFICANT EVENTS OVERNIGHT. HEPARIN CONTINUING PER EMAR. STAYED WITH PATIENT IN ROOM AT BEDSIDE. PATIENT UP TO BATHROOM MULTIPLE TIMES IND/SBA TO VOID. C/O CHRONIC NECK PAIN. FREQUENT READJUSTMENTS OF BED/PILLOWS FOR COMFORT. PARAM PO INTAKE WELL. NO CP OR SOB. CALL LIGHT IN REACH. PLAN OF CARE ONGOING.
--- NOTE | 2025-02-09 07:14 | NUR ---
ASSUMPTION NOTE: THIS RN TO ASSUME CARE OF PATIENT. PATIENT SITTING UP IN BED CHATTING WITH . PATIENT DENIED ANY PAIN AND SATTING >92% ON ROOM AIR. REPORTED NOT GETTING MUCH SLEEP AND HOPING TO GET OUT OF HERE TODAY. CHERELLE HAS CALL LIGHT WITHIN REACH, BED IN LOWEST POSITION & STATING NOTHING ELSE IS NEEDED AT THIS TIME.
[2025-02-09 07:15] VITALS: BP 122/73
[2025-02-09 08:59] LABS: BASOPHILS ABSOLUTE AUTO 0.05 K/mm3 (0.00-0.23); BASOPHILS PERCENT AUTO 1 % (0-2); EOSINOPHILS ABSOLUTE AUTO 0.15 K/mm3 (0.00-0.68); EOSINOPHILS PERCENT AUTO 2 % (0-6); Hematocrit 34.9 % (33.0-51.0); Hemoglobin 11.6 g/dL (11.5-16.0); IMMATURE GRAN ABSOLUTE AUTO 0.02 K/mm3 (0.00-0.10); IMMATURE GRAN PERCENT AUTO 0 % (0-1); LYMPHOCYTES ABSOLUTE AUTO 1.51 K/mm3 (0.84-5.20); LYMPHOCYTES PERCENT AUTO 20 % (21-46); MONOCYTES ABSOLUTE AUTO 0.78 K/mm3 (0.16-1.47); MONOCYTES PERCENT AUTO 10 % (4-13); Mean Corpuscular HGB Conc 33.2 g/dL (31.5-36.5); Mean Corpuscular Volume 88 fL (80-100); NEUTROPHILS ABSOLUTE AUTO 4.99 K/mm3 (1.96-9.15); NEUTROPHILS PERCENT AUTO 67 % (41-73); NRBC ABSOLUTE 0.00 K/mm3 (0.00-0.02); NRBC Auto 0.0 /100 WBC (0.0-0.2); Platelet Count 229 K/mm3 (150-400); RDW Coefficient Variation 13.7 % (11.7-14.2); RDW Standard Deviation 44.4 fL (35.1-46.3)
--- NOTE | 2025-02-09 09:16 | NUR ---
MD ROUNDED: MD ROUNDED AND SPOKE WITH PAITNET AND FAMILY AT BEDSIDE. PATIENT SET TO DISCHARGE TODAY WITH NEW MEDCIATIONS THAT SHE'S BEEN RECEIVING HERE. HEPARIN WAS STOPPED PER VERBAL ORDER & PATIENT MEDS TO BE SENT TO [facility].
[2025-02-09 09:23] LABS: Alanine Aminotransfer (ALT/SGP 27.0 U/L (12-78); Albumin, Blood 3.2 g/dL (3.4-5.0); Albumin/Globulin Ratio 1.0 (0.8-1.8); Anion Gap 7.0 mmol/L (3-11); Aspartate Aminotrans (AST/SGOT 26.0 U/L (12-37); Bilirubin, Total 0.4 mg/dL (0.1-1.0); Blood Urea Nitrogen 21.0 mg/dL (8-24); CO2, Blood 26.0 mmol/L (21-32); Calcium, Blood 8.4 mg/dL (8.5-10.1); Chloride, Blood 107.0 mmol/L (98-108); Creatinine, Blood 0.71 mg/dL (0.40-1.00); Globulin, Blood 3.2 g/dL (2.2-4.0); Glucose, Blood 127.0 mg/dL (70-99); Potassium, Blood 3.3 mmol/L (3.5-5.5); Sodium, Blood 137.0 mmol/L (136-145); Total Protein, Blood 6.4 g/dL (6.4-8.2)
[2025-02-09] MEDS ORDERED: AMLO10 PO (11:08)
[2025-02-09] MEDS ORDERED: ASPI81CH PO (11:09)
[2025-02-09] MEDS ORDERED: ATOR40TA PO (11:10)
[2025-02-09] MEDS ORDERED: CLOP75 PO (11:10)
[2025-02-09] MEDS ORDERED: LOSA25 PO (11:11)
--- NOTE | 2025-02-09 12:09 | NUR ---
discharge note: patient is alert and orienteed x4 & cooperative with her care. patient understood [facility] regarding discharge packet. aware cardiolgost office will call to schedule appointment to follow up. patient to call primary to scheduled another appointment as she cancelled the one she had as she thought she was going to stay in the hospital longer. patient did not have any other questions regarding new medciations that were started in the hospital and [facility]. iv taken out & tele taken off. patient was wheeled out to patient entrance via wheelchair with all personal belongings.
== END 2025-02-09 11:36 | disposition home or self-care (01) ==
LOC: ER 00:28 → PCU 00:29
PROVIDERS: Emergency Medicine; Internal Medicine; Student in an Organized Health Care Education/Training Program; ADMIT Internal Medicine
DX: I21.4 Non-ST elevation (NSTEMI) myocardial infarction (principal); I11.9 Hypertensive heart disease without heart failure; K21.9 Gastro-esophageal reflux disease without esophagitis; E11.9 Type 2 diabetes mellitus without complications; E03.9 Hypothyroidism, unspecified; M81.0 Age-related osteoporosis without current pathological fracture; Z87.891 Personal history of nicotine dependence; Z88.0 Allergy status to penicillin; Z79.890 Hormone replacement therapy; Z79.82 Long term (current) use of aspirin; Z79.899 Other long term (current) drug therapy
CPT/HCPCS: 36415; 71046; 80053; 82947; 84439; 84443; 84484; 85014; 85018; 85025; 85049; 85379; 85520; 85610; 85730; 93005; 93010; 93306; 96374; 96376; 99285-25; A9270; G0378; J1644